=== PATIENT | female | born 1950 | race Caucasian/White ===

== ENCOUNTER 2016-09-03 10:59 | Inpatient (IN) | payer OTHER ==
[~2016-09-03] VITALS: Ht 162.6 cm; Wt 81.0 kg
[~2016-09-03 10:59] MED LIST: COMBIVENT200 INHALA IH; MOTRIN800 MG PO; NEURONTIN300 MG PO; PERCOCET 5/31 TABLET PO; SYMBICORT IH; ULTRAM50 MG PO
[2016-09-03 11:57] LABS: HEMATOCRIT 47.8 % (36.0-46.0); MCH 29.6 PG (29.0-34.0); MCHC 28.9 G/DL (30.0-36.0); MCV 102.4 FL (83-99); MEAN PLAT.VOLUME 10.2 uM^3 (9.5-12.4); PLATELET COUNT 182 K/uL (156-360); RBC DIS.WIDTH-SD 48.2 % (39-53); RED BLOOD COUNT 4.67 M/uL (3.80-5.20); WHITE BLOOD COUNT 6.2 K/uL (4.1-10.2)
[2016-09-03 12:01] VITALS: BP 99/78
[2016-09-03 12:02] LABS: BASOPHIL COUNT 0.1 K/uL (0-0.1); EOSINOPHIL (%) 3.7 % (0-5); EOSINOPHIL COUNT 0.2 K/uL (0-0.3); IMMATURE GRANULOCYTE (%) 0.2 % (0.0-0.7); IMMATURE GRANULOCYTE COUNT 0.1 K/uL; LYMPHOCYTE COUNT 1.2 K/uL (1.0-2.8); MONOCYTE (%) 6.9 % (3-12); MONOCYTE COUNT 0.4 K/uL (0-0.8); NEUTROPHIL (%) 69.8 % (45-76); NEUTROPHIL COUNT 4.4 K/uL (1.8-6.4)
[2016-09-03 12:10] LABS: CHLORIDE 94 mEq/L (99-109); POTASSIUM 4.3 mEq/L (3.7-5.4); SODIUM 141 mEq/L (136-147)
[2016-09-03 12:12] LABS: GLUCOSE 127 mg/dL (70-99)
[2016-09-03 12:13] LABS: ANION GAP 8 MEQ/L (2-14)
[2016-09-03 12:16] LABS: GFR ESTIMATE (CALCULATED) > 59 mL/min/
[2016-09-03 12:17] LABS: UREA NITROGEN (BUN) 11 mg/dL (9-23)
[2016-09-03 13:01] VITALS: BP 142/87
[2016-09-03] MEDS ORDERED: SUDAFED PE PRE1 EAC3 PO (13:05)
[2016-09-03] MEDS ORDERED: SYMBICORT60 INHALA1 IH (13:05)
[2016-09-03] MEDS ORDERED: VITAMIN D32000 UNI1 PO (13:06)
[2016-09-03] MEDS ORDERED: PERCOCET 7.51 TABLET PO (13:06)
[2016-09-03] MEDS ORDERED: ASCORBIC ACID250 MG PO (13:07)
[2016-09-03] MEDS ORDERED: SALINE NASAL SP45 ML BOTH NARES (13:07)
[2016-09-03 15:19] VITALS: BP 125/50
[2016-09-03 17:25] VITALS: BP 129/60
[2016-09-03 17:33] LABS: POINT-OF-CARE METER ID UU13113702
[2016-09-03 17:51] LABS: INFLUENZA A VIRAL ANTIGEN NEGATIVE; INFLUENZA B VIRAL ANTIGEN NEGATIVE
[2016-09-03 19:53] VITALS: BP 141/63
[2016-09-03 23:43] VITALS: BP 116/58
[2016-09-04 04:05] VITALS: BP 121/65
[2016-09-04 07:27] VITALS: BP 138/59
[2016-09-04 12:00] VITALS: BP 122/55
[2016-09-04 15:22] VITALS: BP 126/55
[2016-09-04 19:18] VITALS: BP 130/63
[2016-09-04 21:23] LABS: POINT-OF-CARE METER ID UU14174225
[2016-09-04 21:56] VITALS: BP 128/61
[2016-09-05 00:10] VITALS: BP 140/62
[2016-09-05 03:36] VITALS: BP 139/65
[2016-09-05 07:07] LABS: EOSINOPHIL (%) 0 % (0-5); HEMATOCRIT 46.4 % (36.0-46.0); IMMATURE GRANULOCYTE (%) 0.1 % (0.0-0.7); LYMPHOCYTE COUNT 0.4 K/uL (1.0-2.8); MCH 30.6 PG (29.0-34.0); MCHC 30.6 G/DL (30.0-36.0); MONOCYTE (%) 3.9 % (3-12); MONOCYTE COUNT 0.3 K/uL (0-0.8); NEUTROPHIL (%) 90.5 % (45-76); NEUTROPHIL COUNT 6.9 K/uL (1.8-6.4); PLATELET COUNT 201 K/uL (156-360); RBC DIS.WIDTH-CV 13.6 % (11.8-14.6); RED BLOOD COUNT 4.64 M/uL (3.80-5.20); WHITE BLOOD COUNT 7.6 K/uL (4.1-10.2)
[2016-09-05 07:43] LABS: ANION GAP ND MEQ/L (2-14); CHLORIDE 97 MEQ/L (99-109); GFR ESTIMATE (CALCULATED) > 59 mL/min/; GLUCOSE 144 mg/dL (70-99); POTASSIUM 4.6 MEQ/L (3.7-5.4); SAMPLE HEMOLYSIS CHECK 0; SAMPLE ICTERIC CHECK 0; SAMPLE LIPEMIA CHECK 0; SODIUM 141 MEQ/L (136-147); UREA NITROGEN (BUN) 17 mg/dL (9-23)
[2016-09-05 07:51] LABS: CARBON DIOXIDE (BICARBONATE) > 40.0 MEQ/L (20-31)
[2016-09-05 07:58] LABS: POINT-OF-CARE METER ID UU14188625
[2016-09-05 08:05] VITALS: BP 128/64
[2016-09-05 11:50] VITALS: BP 123/60
[2016-09-05 12:14] LABS: POINT-OF-CARE METER ID UU14188625
[2016-09-05 15:15] VITALS: BP 151/71
[2016-09-05 20:00] VITALS: BP 132/66
[2016-09-06] VITALS: BP 139/66
[2016-09-06 03:57] VITALS: BP 124/67
[2016-09-06 07:23] LABS: EOSINOPHIL (%) 0 % (0-5); IMMATURE GRANULOCYTE (%) 0.1 % (0.0-0.7); LYMPHOCYTE COUNT 0.5 K/uL (1.0-2.8); MCH 29.2 PG (29.0-34.0); MCHC 29.6 G/DL (30.0-36.0); MCV 98.8 FL (83-99); MEAN PLAT.VOLUME 10.8 uM^3 (9.5-12.4); MONOCYTE (%) 4.9 % (3-12); MONOCYTE COUNT 0.4 K/uL (0-0.8); NEUTROPHIL (%) 88.8 % (45-76); NEUTROPHIL COUNT 6.6 K/uL (1.8-6.4); PLATELET COUNT 220 K/uL (156-360); RBC DIS.WIDTH-CV 13.8 % (11.8-14.6); RBC DIS.WIDTH-SD 49.7 % (39-53); RED BLOOD COUNT 5.06 M/uL (3.80-5.20); WHITE BLOOD COUNT 7.4 K/uL (4.1-10.2)
[2016-09-06 07:42] LABS: ANION GAP ND MEQ/L (2-14); CHLORIDE 96 MEQ/L (99-109); GFR ESTIMATE (CALCULATED) > 59 mL/min/; GLUCOSE 141 mg/dL (70-99); POTASSIUM 5.1 MEQ/L (3.7-5.4); SAMPLE HEMOLYSIS CHECK 0; SAMPLE ICTERIC CHECK 0; SAMPLE LIPEMIA CHECK 0; SODIUM 142 MEQ/L (136-147); UREA NITROGEN (BUN) 19 mg/dL (9-23)
[2016-09-06 07:43] LABS: CARBON DIOXIDE (BICARBONATE) > 40.0 MEQ/L (20-31)
[2016-09-06 07:50] VITALS: BP 136/78
[2016-09-06 11:39] VITALS: BP 140/64
[2016-09-06 16:11] VITALS: BP 132/66
[2016-09-06 20:00] VITALS: BP 133/76
[2016-09-07] VITALS: BP 125/67
[2016-09-07 04:00] VITALS: BP 135/65
[2016-09-07 07:32] VITALS: BP 136/65
[2016-09-07 07:58] LABS: ANION GAP ND MEQ/L (2-14); CHLORIDE 94 MEQ/L (99-109); GFR ESTIMATE (CALCULATED) > 59 mL/min/; SAMPLE HEMOLYSIS CHECK 0; SAMPLE ICTERIC CHECK 0; SAMPLE LIPEMIA CHECK 0; SODIUM 141 MEQ/L (136-147); UREA NITROGEN (BUN) 17 mg/dL (9-23)
[2016-09-07 08:07] LABS: GLUCOSE 86 mg/dL (70-99)
[2016-09-07 08:08] LABS: CARBON DIOXIDE (BICARBONATE) > 40.0 MEQ/L (20-31)
[2016-09-07 08:32] LABS: BASE EXCESS 16.6 mEq/L (-3 to +3); BICARBONATE 45.1 mEq/L (22-26); CARBOXY HGB 2.1 % (0-5); COMMENTS - BLOOD GASES A+C+; DEVICE NC; METHEMOGLOBIN 1.3 % (0-1.5); O2 FLOW 4 L/MIN; PCO2 68 mm Hg (35-45); PO2 47 mm Hg (80-100); SITE LRA; TOTAL RESP RATE 12 resp/min; pH 7.43 (7.35-7.45)
[2016-09-07 11:12] VITALS: BP 134/66
[2016-09-07 16:00] VITALS: BP 141/74
[2016-09-07 20:05] VITALS: BP 112/58
[2016-09-08 00:04] VITALS: BP 110/54
[2016-09-08 04:10] VITALS: BP 109/56
[2016-09-08 07:26] LABS: ANION GAP ND MEQ/L (2-14); CHLORIDE 93 MEQ/L (99-109); GFR ESTIMATE (CALCULATED) > 59 mL/min/; GLUCOSE 71 mg/dL (70-99); SAMPLE HEMOLYSIS CHECK 2; SAMPLE ICTERIC CHECK 0; SAMPLE LIPEMIA CHECK 0; SODIUM 141 MEQ/L (136-147); UREA NITROGEN (BUN) 18 mg/dL (9-23)
[2016-09-08 07:27] LABS: CARBON DIOXIDE (BICARBONATE) > 40.0 MEQ/L (20-31); POTASSIUM 5.4 MEQ/L (3.7-5.4)
[2016-09-08 09:08] VITALS: BP 131/67
[2016-09-08 12:25] VITALS: BP 123/67
[2016-09-08 16:46] VITALS: BP 117/65
[2016-09-08 19:20] VITALS: BP 125/62
[2016-09-09] VITALS (7 sets, daily range): BP systolic 112–143; BP diastolic 54–69
[2016-09-09 07:22] LABS: ANION GAP ND MEQ/L (2-14); CHLORIDE 96 MEQ/L (99-109); GFR ESTIMATE (CALCULATED) > 59 mL/min/; GLUCOSE 65 mg/dL (70-99); SAMPLE HEMOLYSIS CHECK 0; SAMPLE ICTERIC CHECK 0; SAMPLE LIPEMIA CHECK 0; SODIUM 143 MEQ/L (136-147); UREA NITROGEN (BUN) 16 mg/dL (9-23)
[2016-09-09 07:31] LABS: CARBON DIOXIDE (BICARBONATE) > 40.0 MEQ/L (20-31); POTASSIUM 3.6 MEQ/L (3.7-5.4)
[2016-09-10 03:57] VITALS: BP 114/63
[2016-09-10 06:55] VITALS: BP 130/72
[2016-09-10 07:26] LABS: ANION GAP 4 MEQ/L (2-14); CHLORIDE 97 MEQ/L (99-109); GFR ESTIMATE (CALCULATED) > 59 mL/min/; GLUCOSE 75 mg/dL (70-99); POTASSIUM 3.9 MEQ/L (3.7-5.4); SAMPLE HEMOLYSIS CHECK 0; SAMPLE ICTERIC CHECK 0; SAMPLE LIPEMIA CHECK 0; SODIUM 141 MEQ/L (136-147); UREA NITROGEN (BUN) 15 mg/dL (9-23)
[2016-09-10 11:28] VITALS: BP 119/59
[2016-09-10 19:32] VITALS: BP 117/60
[2016-09-10 23:39] VITALS: BP 128/63
[2016-09-11 04:11] VITALS: BP 126/67
[2016-09-11 08:49] VITALS: BP 121/63
[2016-09-11 09:05] LABS: BASE EXCESS 14.2 mEq/L (-3 to +3); BICARBONATE 41.4 mEq/L (22-26); CARBOXY HGB 2.7 % (0-5); METHEMOGLOBIN 1.6 % (0-1.5); PO2 49 mm Hg (80-100); pH 7.44 (7.35-7.45)
[2016-09-11 09:06] LABS: COMMENTS - BLOOD GASES NEG A+C+; DEVICE NC HF; MECHANICAL RATE 16 resp/min; O2 FLOW 6 L/MIN; PCO2 61 mm Hg (35-45); SITE LR
[2016-09-11 11:55] VITALS: BP 121/62
[2016-09-11 20:21] VITALS: BP 131/65
[2016-09-12 00:19] VITALS: BP 118/57
[2016-09-12 04:29] VITALS: BP 126/61
[2016-09-12 07:16] VITALS: BP 130/59
[2016-09-12 11:05] VITALS: BP 120/56
[2016-09-12 14:47] VITALS: BP 126/56
[2016-09-12] MEDS ORDERED: PREDNISONE20 MG PO (15:08)
[2016-09-12] MEDS ORDERED: SPIRIVA RESPIMAT4 GM IH (15:08)
== END 2016-09-12 18:15 | disposition hospice, home (50) | DRG 189 ==
LOC: EME 10:59 → EDOF 13:07 → 5SOUTH 13:07 → EDOF 13:13 → 5SOUTH 19:34
PROVIDERS: Emergency Medicine; Internal Medicine; Internal Medicine Pulmonary Disease; Student in an Organized Health Care Education/Training Program
DX: J96.21 Acute and chronic respiratory failure with hypoxia (principal); J44.1 Chronic obstructive pulmonary disease with (acute) exacerbation; Z99.81 Dependence on supplemental oxygen; E11.9 Type 2 diabetes mellitus without complications; F17.210 Nicotine dependence, cigarettes, uncomplicated; I25.10 Atherosclerotic heart disease of native coronary artery without angina pectoris; M19.90 Unspecified osteoarthritis, unspecified site; G89.4 Chronic pain syndrome
CPT/HCPCS: 36600; 71010; 71020; 71250; 80048; 82803; 82948; 85025; 87070; 87205; 87502; 93005; 94010; 94640; 94640 76; 94644; 94660; 94667; 94668; 94760; 94799; 97530 GO; 99202; 99281; 99285; J1650; J1815; J2930; J7030; J7512; J7644